=== PATIENT | female | born 1955 | race Caucasian/White ===

== ENCOUNTER → 2018-03-09 | Outpatient (REF) | payer BC ==
[2018-03-11 14:42] LABS: HPV HYBRID CAPTURE II Negative (Negative)
== END ==
LOC: M SFHCWAGY 08:09
PROVIDERS: ATTEND Nurse Practitioner Women's Health
DX: Z12.4 Encounter for screening for malignant neoplasm of cervix (principal)
CPT/HCPCS: 87624; G0123

== ENCOUNTER → 2018-03-09 | Outpatient (CLI) | payer BC ==
--- NOTE | 2018-03-09 09:37 | REPMRS ---
Patient History The patient states she had a clinical breast exam in 02/2018. Patient is postmenopausal and had first child at age 41. Family history of pancreatic cancer at age 50 or over in maternal grandmother. Digital Woman Screen Mammo: March 09, 2018 - Exam #: [id number] Bilateral CC and MLO view(s) were taken. Technologist: Rody Harrington Technologist Prior study comparison: February 14, 2016, digital woman screen mammo performed at [facility]. January 01, 2015, digital woman screen mammo performed at [facility]. November 01, 2013, digital woman screen mammo performed at [facility]. FINDINGS: There are scattered fibroglandular densities. There are stable benign nodular opacities present bilaterally unchanged. There has been no change in the appearance of the mammogram from the prior studies. There is a mild amount of scattered fibroglandular density which is fairly symmetric. There is no interval development of dominant mass, architectural distortion, or clustered microcalcification suggestive of malignancy. 3-D tomosynthesis shows no additional findings. Assessment: BI-RADS/ACR category 2 mammogram. Benign Findings. Recommendation Routine screening mammogram of both breasts in 1 year (for women over age 40). This patient's Lifetime Breast Cancer RIsk is estimated at 10.6 %. This mammogram was interpreted with the aid of an FDA-approved computer-aided dectection system. Electronically Signed By: Hussein Kumar MD 03/09/18 0937
== END ==
LOC: M WHC 08:15
PROVIDERS: ATTEND Nurse Practitioner Women's Health
DX: Z12.31 Encounter for screening mammogram for malignant neoplasm of breast (principal)

== ENCOUNTER → 2019-04-21 | Outpatient (CLI) | payer BC ==
--- NOTE | 2019-04-21 10:53 | REPMRS ---
Patient History The patient states she had a clinical breast exam in April 2019. Family history of pancreatic cancer at age 50 or over in maternal grandmother. Digital Woman Screen Mammo: April 21, 2019 - Exam #: [id number] Bilateral CC and MLO view(s) were taken. Technologist: Apple Shirley, Technologist Prior study comparison: March 09, 2018, bilateral digital woman screen mammo performed at [facility]. February 14, 2016, digital woman screen mammo performed at [facility]. January 01, 2015, digital woman screen mammo performed at [facility]. FINDINGS: There are scattered fibroglandular densities. There has been no change in the appearance of the mammogram from the prior studies. There is a mild amount of scattered fibroglandular density which is fairly symmetric. There is no interval development of dominant mass, architectural distortion, or grouped microcalcification suggestive of malignancy. 3-D tomosynthesis shows no additional findings. Assessment: BI-RADS/ACR category 1 mammogram. Negative Mammogram. Recommendation Routine screening mammogram of both breasts in 1 year (for women over age 40). This patient's Lifetime Breast Cancer Risk is estimated at 10.2 %. This mammogram was interpreted with the aid of an FDA-approved computer-aided dectection system. Electronically Signed By: Hussein Kumar MD 04/21/19 [id number]
== END ==
LOC: M WHC 08:37
PROVIDERS: ATTEND Nurse Practitioner Women's Health
DX: Z12.31 Encounter for screening mammogram for malignant neoplasm of breast (principal)

== ENCOUNTER → 2020-05-02 | Outpatient (REF) | payer BC | LOC: M SFHCWAGY 17:04 | PROVIDERS: ATTEND Nurse Practitioner Women's Health | DX: Z12.4 Encounter for screening for malignant neoplasm of cervix (principal) | CPT/HCPCS: 87624; G0123 ==

== ENCOUNTER → 2020-05-02 | Outpatient (CLI) | payer BC ==
--- NOTE | 2020-05-02 15:24 | REPMRS ---
Patient History The patient states she had a clinical breast exam in 04/2020 Family history of pancreatic cancer at age 50 or over in maternal grandmother. Digital Woman Screen Mammo: May 02, 2020 - Exam #: [id number] Bilateral CC and MLO view(s) were taken. Technologist: Shazia aHnley, Technologist Prior study comparison: April 21, 2019, bilateral digital woman screen mammo performed at [facility]. March 09, 2018, bilateral digital woman screen mammo performed at [facility]. February 14, 2016, digital woman screen mammo performed at [facility]. FINDINGS: The breast tissue is almost entirely fat. The Volpara volumetric breast density category is: A. There has been no change in the appearance of the mammogram from the prior studies. There is no interval development of dominant mass, architectural distortion, or grouped microcalcification typical of malignancy. 3-D tomosynthesis shows no additional findings. Assessment: BI-RADS/ACR category 1 mammogram. Negative Mammogram. Recommendation Routine screening mammogram of both breasts in 1 year (for women over age 40). This patient's [facility] Lifetime Breast Cancer RIsk is estimated at 9.8 %. This mammogram was interpreted with the aid of an FDA-approved computer-aided dectection system. Electronically Signed By: Hussein Kumar MD 05/02/20 [id number]
== END ==
LOC: M WHC 13:42
PROVIDERS: ATTEND Nurse Practitioner Women's Health
DX: Z12.31 Encounter for screening mammogram for malignant neoplasm of breast (principal)

== ENCOUNTER → 2021-07-09 | Outpatient (CLI) | payer OTHER | LOC: M WHC 09:21 | PROVIDERS: ATTEND Advanced Practice Midwife | DX: Z12.31 Encounter for screening mammogram for malignant neoplasm of breast (principal) ==

== ENCOUNTER → 2021-07-28 | Outpatient (CLI) | payer OTHER | LOC: M WHC 07:55 | PROVIDERS: ATTEND Advanced Practice Midwife | DX: M81.0 Age-related osteoporosis without current pathological fracture (principal); M85.852 Other specified disorders of bone density and structure, left thigh ==

== ENCOUNTER → 2022-08-06 | Outpatient (REF) | payer OTHER | LOC: M PLALAB 09:19 | PROVIDERS: ATTEND Advanced Practice Midwife | DX: Z12.4 Encounter for screening for malignant neoplasm of cervix (principal); N95.2 Postmenopausal atrophic vaginitis | CPT/HCPCS: 87624; G0123 ==

== ENCOUNTER → 2022-08-06 | Outpatient (CLI) | payer OTHER, SELFPAY | LOC: M WHC 08:18 | PROVIDERS: ATTEND Advanced Practice Midwife | DX: Z12.31 Encounter for screening mammogram for malignant neoplasm of breast (principal) ==

== ENCOUNTER → 2023-09-21 | Outpatient (CLI) | payer OTHER | LOC: M WHC 09:00 | PROVIDERS: ATTEND Nurse Practitioner Women's Health | DX: Z12.31 Encounter for screening mammogram for malignant neoplasm of breast (principal) ==

== ENCOUNTER → 2024-04-13 | Outpatient (CLI) | payer OTHER | LOC: M EKG 08:33 | PROVIDERS: ATTEND Family Medicine | DX: R00.2 Palpitations (principal) ==

== ENCOUNTER → 2024-05-01 | Outpatient (CLI) | payer OTHER | LOC: M RAD 06:33 | PROVIDERS: ATTEND Family Medicine | DX: R10.11 Right upper quadrant pain (principal) ==

== ENCOUNTER → 2024-10-12 | Outpatient (CLI) | payer OTHER | LOC: M WHC 14:29 | PROVIDERS: ATTEND Advanced Practice Midwife | DX: Z12.31 Encounter for screening mammogram for malignant neoplasm of breast (principal); M85.89 Other specified disorders of bone density and structure, multiple sites; R92.313 Mammographic fatty tissue density, bilateral breasts ==